=== PATIENT | male | born 1960 | race Hispanic/Latino ===

== ENCOUNTER → 2019-08-28 | Day surgery (SDC) | payer BC ==
[~2019-08-28] MED LIST: FENOFIBRATE145 MG PO; LISINOPRIL-HCT1 EAC2 PO; MIDAZOLAM HCL 2 MG/2 ML VIAL ONE; PROPOFOL IV EMULSION 10 MG/ML 50 ML VIAL ONE
[2019-08-28 16:20] VITALS: BP 100/65
== END | disposition home or self-care (01) ==
LOC: OR 11:32
PROVIDERS: ATTEND Internal Medicine Gastroenterology
DX: Z12.11 Encounter for screening for malignant neoplasm of colon (principal); K57.30 Diverticulosis of large intestine without perforation or abscess without bleeding; K64.8 Other hemorrhoids; Z71.3 Dietary counseling and surveillance; I10 Essential (primary) hypertension; E78.6 Lipoprotein deficiency; E66.9 Obesity, unspecified; F17.210 Nicotine dependence, cigarettes, uncomplicated; Z68.36 Body mass index [BMI] 36.0-36.9, adult
CPT/HCPCS: 45378; 93005; J2250; J2704